=== PATIENT | female | born 1995 | race Caucasian/White ===

== ENCOUNTER 2017-09-17 22:23 | Inpatient (IN) | payer OTHER ==
[~2017-09-17] VITALS: Ht 160 cm; Wt 127.0 kg
[~2017-09-17 22:23] MED LIST: ALPRAZOLAM OR; CIPRO500 MG PO; CLONAZEPAM 1 MG1 M1 PO; GABAPENTIN; METHADONE HCL 110 M1; METHADONE HCL 110 M1 PO; MOBIC7.5 MG PO; NAPROSYN500 MG PO; NAPROXEN 375 M375 M1 PO; NORCO 5-325 TA1 EACH PO; OXYCODONE HCL10 M1; OXYCONTIN10 M1 PO; ROBAXIN 750 MG750 M1 PO; ROXICODONE5 M1 PO; THERA-M CAPLET1 EACH; XANAX1 MG PO; ZANTAC PO; ZOLOFT25 MG
[2017-09-17 22:26] VITALS: BP 134/67
[2017-09-17 22:53] LABS: ABSOLUTE BASOPHILS 0.1 thou/uL (0.0-0.2); ABSOLUTE LYMPHOCYTES 2.1 thou/uL (0.8-5.3); ABSOLUTE MONOCYTES 1.1 thou/uL (0.0-1.2); BASOPHILS 0.4 %; EOSINOPHILS 0.1 %; HEMATOCRIT 31.6 % (37.0-47.0); HEMOGLOBIN 9.8 gm/dL (12.0-15.0); LYMPHOCYTES 10.9 %; MCH 16.5 pg (26.0-34.0); MCHC 31.1 g/dL (28.0-37.0); MCV 53.2 fL (80.0-100.0); MONOCYTES 5.8 %; MPV 8.9 fl. (7.2-11.1); NUCLEATED RBCS 0 /100WBC; PLATELET COUNT* 286 thou/uL (150-400); POLYS 82.8 %; RBC 5.94 mil/uL (4.20-5.00); RDW-CV 18.5 % (10.5-14.5); WBC 19.3 thou/uL (4.0-11.0)
[2017-09-17 23:00] LABS: CALCIUM 8.6 mg/dL (8.5-10.1); CREATININE 0.8 mg/dL (0.6-1.3); POTASSIUM 3.5 mmol/L (3.5-5.1)
[2017-09-17 23:05] LABS: ALBUMIN 3.5 g/dL (3.4-5.0); TOTAL BILIRUBIN 0.8 mg/dL (<0.1-1.0)
[2017-09-17 23:10] LABS: URINE BILIRUBIN NEGATIVE (Negative); URINE BLOOD 3+ (Negative); URINE CLARITY SL CLOUDY; URINE COLOR RED; URINE GLUCOSE-RANDOM TRACE (Negative); URINE KETONES NEGATIVE (Negative); URINE LEUKOCYTES-REFLEX TRACE (Negative); URINE PROTEIN 2+ (Negative)
[2017-09-17 23:12] LABS: URINE NITRITE-REFLEX POSITIVE (Negative)
[2017-09-17 23:13] LABS: INFLUENZA A ANTIGEN None Detected (None Detect); INFLUENZA B ANTIGEN None Detected (None Detect)
[2017-09-17 23:17] LABS: CASTS None Seen /LPF (None Seen); CRYSTALS None Seen /LPF (None Seen); MUCUS 0-3 Light strn/LPF (None Seen); SQUAMOUS 0-3 Few /LPF (0-3); URINE RBC >20 Many /HPF (0-2); WBC CLUMPS Few (None Seen)
[2017-09-18] VITALS (8 sets, daily range): BP systolic 85–115; BP diastolic 34–67
[2017-09-18 00:31] LABS: ANISOCYTOSIS 2+; HYPOCHROMASIA 2+; MICROCYTES 2+; OVALOCYTES 1+; POIKILOCYTOSIS 2+; SCHISTOCYTES Occasional; TARGET CELLS 1+
[2017-09-18 10:06] LABS: CREATININE 0.8 mg/dL (0.6-1.3); MAGNESIUM 1.8 mg/dL (1.8-2.4)
[2017-09-19 00:15] VITALS: BP 93/33
[2017-09-19 03:33] VITALS: BP 106/39
[2017-09-19 04:46] LABS: ABSOLUTE EOSINOPHILS 0.1 thou/uL (0.0-0.7); ABSOLUTE LYMPHOCYTES 2.9 thou/uL (0.8-5.3); ABSOLUTE NEUTROPHILS 8.6 thou/uL (1.6-8.1); BASOPHILS 0.1 %; EOSINOPHILS 0.8 %; HEMATOCRIT 25.7 % (37.0-47.0); HEMOGLOBIN 7.9 gm/dL (12.0-15.0); LYMPHOCYTES 22.7 %; MCH 16.6 pg (26.0-34.0); MCHC 30.6 g/dL (28.0-37.0); MCV 54.2 fL (80.0-100.0); MONOCYTES 7.9 %; MPV 8.9 fl. (7.2-11.1); NUCLEATED RBCS 0 /100WBC; PLATELET COUNT* 213 thou/uL (150-400); POLYS 68.5 %; RBC 4.74 mil/uL (4.20-5.00); RDW-CV 18.5 % (10.5-14.5); WBC 12.6 thou/uL (4.0-11.0)
[2017-09-19 05:07] LABS: CALCIUM 8.3 mg/dL (8.5-10.1); CREATININE 0.6 mg/dL (0.6-1.3); POTASSIUM 3.8 mmol/L (3.5-5.1)
[2017-09-19 06:49] LABS: OVALOCYTES 2+
[2017-09-19 06:50] LABS: ANISOCYTOSIS 2+; MICROCYTES 2+
[2017-09-19 08:00] VITALS: BP 93/43
[2017-09-19 12:06] VITALS: BP 104/61
[2017-09-19] MEDS ORDERED: CEFDINIR300 MG PO (12:26)
[2017-09-19] MEDS ORDERED: TYLENOL325 MG PO (12:26)
[2017-09-19 12:29] VITALS: BP 104/61
== END 2017-09-19 14:32 | disposition home or self-care (01) | DRG 871 ==
LOC: M.ERS 22:23 → M.TBA-ER 23:54 → M.3W 09-18 18:53
PROVIDERS: Internal Medicine; Physician Assistant; ADMIT Internal Medicine
DX: A41.9 Sepsis, unspecified organism (principal); J15.9 Unspecified bacterial pneumonia; Z68.42 Body mass index [BMI] 45.0-49.9, adult; N39.0 Urinary tract infection, site not specified; M79.1 Myalgia; E66.01 Morbid (severe) obesity due to excess calories; K21.9 Gastro-esophageal reflux disease without esophagitis; I10 Essential (primary) hypertension; E11.9 Type 2 diabetes mellitus without complications; Z86.14 Personal history of Methicillin resistant Staphylococcus aureus infection; Z88.8 Allergy status to other drugs, medicaments and biological substances; Z79.899 Other long term (current) drug therapy

== ENCOUNTER 2019-01-14 14:23 | Emergency (ER) | payer OTHER ==
[~2019-01-14] VITALS: Ht 160 cm; Wt 131.4 kg
[~2019-01-14 14:23] MED LIST changes: +CEFDINIR300 MG PO; +TYLENOL325 MG PO
[2019-01-14] MEDS ORDERED: ZPAK PO (16:28)
[2019-01-14] MEDS ORDERED: VENTOLIN HFA 1818 GM INH (16:28)
[2019-01-14 16:45] VITALS: BP 129/80
== END 2019-01-14 16:45 | disposition home or self-care (01) ==
LOC: M.ERS 14:23
DX: Z98.890 Other specified postprocedural states (principal); K21.9 Gastro-esophageal reflux disease without esophagitis; E11.9 Type 2 diabetes mellitus without complications; Z86.14 Personal history of Methicillin resistant Staphylococcus aureus infection; E66.01 Morbid (severe) obesity due to excess calories; F17.210 Nicotine dependence, cigarettes, uncomplicated; Z68.43 Body mass index [BMI] 50.0-59.9, adult; Z90.721 Acquired absence of ovaries, unilateral; Z88.8 Allergy status to other drugs, medicaments and biological substances